=== PATIENT | female | born 1930 | race Caucasian/White ===

== ENCOUNTER 2018-01-18 13:46 | Emergency (ER) | payer OTHER ==
[~2018-01-18] VITALS: Ht 165.1 cm; Wt 104.3 kg
[~2018-01-18 13:46] MED LIST: LASIX 20 MG TAB20 MG PO
[2018-01-18 14:34] LABS: ABSOLUTE NEUTROPHILS 6.8 thou/uL (1.4-8.2); BASOPHILS 1.1 % (0.0-2.0); EOSINOPHILS 1.7 % (0.0-3.0); HEMATOCRIT 38.6 % (37.0-47.0); HEMOGLOBIN 12.9 gm/dL (12.0-15.0); LYMPHOCYTES 21.7 % (24.0-44.0); MCH 30.7 pg (26.0-34.0); MCHC 33.5 g/dL (28.0-37.0); MCV 91.6 fL (80.0-100.0); MONOCYTES 8.4 % (1.0-8.0); PLATELET COUNT 392 thou/uL (150-400); POLYS 67.1 % (36.0-66.0); RBC 4.21 mil/uL (4.20-5.00); RDW 15.8 % (10.5-14.5); WBC 10.1 thou/uL (4.0-11.0)
[2018-01-18 14:37] LABS: CALCIUM 9.9 mg/dL (8.5-10.1); CREATININE 0.8 mg/dL (0.6-1.0); POTASSIUM 3.8 mmol/L (3.5-5.1)
[2018-01-18] MEDS ORDERED: DILTIAZEM HCL90 MG PO (16:50)
[2018-01-18] MEDS ORDERED: ASPIR 8181 MG PO (16:50)
[2018-01-18] MEDS ORDERED: LOPRESSOR50 PO (16:51)
[2018-01-18] MEDS ORDERED: MULTIPLE VITAM1 EAC2 PO (16:52)
[2018-01-18] MEDS ORDERED: ALUM-MAG HYDRO360 ML PO (16:53)
[2018-01-18] MEDS ORDERED: NORCO 5-325 TA1 EACH PO (16:53)
[2018-01-18] MEDS ORDERED: SIMVASTATIN40 MG PO (16:54)
[2018-01-18] MEDS ORDERED: TYLENOL EXTRA500 MG PO (16:54)
[2018-01-18] MEDS ORDERED: KLOR-CON 1010 MEQ PO (16:54)
[2018-01-18] MEDS ORDERED: ZANAFLEX2 MG PO (16:55)
[2018-01-18 21:10] VITALS: BP 187/81
== END 2018-01-18 22:49 | disposition short-term general hospital (02) ==
LOC: ER 13:46
PROVIDERS: Emergency Medicine
DX: D33.4 Benign neoplasm of spinal cord (principal); G95.20 Unspecified cord compression; R53.1 Weakness; M54.9 Dorsalgia, unspecified; G89.29 Other chronic pain; E78.5 Hyperlipidemia, unspecified; Z91.041 Radiographic dye allergy status